=== PATIENT | male | born 1955 | race Caucasian/White ===

== ENCOUNTER 2019-04-12 19:10 | Emergency (ER) | payer MEDICARE ==
[~2019-04-12] VITALS: Ht 188 cm; Wt 92.5 kg
--- NOTE | 2019-04-12 19:15 | ED.ADGEN ---
Adult General Chief Complaint Chief Complaint ".. I feel like when I got exposed to some backing title board dust.. about a year ago... I have treatments.. but I am still really short of breath.. I been staying with a marlen that has 5 cats.. and they make me wheeze too...." HPI HPI Patient is a 63 year old male who presents with above hx and increased wheezing and dyspnea. Pt. has had reactive air way and asthma like complaints the last couple years. Patient does use breathing treatments and was last on steroids for months ago. Follows with fabrizio Garcia in [facility] as primary. Does have hx HTN, but has been controlled on meds. No hx of tobacco use. No specific ill contract s or his immunosuppression. Review of Systems Review of Systems Constitutional: Denies fever or chills [] Eyes: Denies change in visual acuity, redness, or eye pain [] HENT: Denies nasal congestion or sore throat [] Respiratory: Complaints cough and shortness of breath [] Cardiovascular: No additional information not addressed in HPI [] GI: Denies abdominal pain, nausea, vomiting, bloody stools or diarrhea [] : Denies dysuria or hematuria [] Musculoskeletal: Denies back pain or joint pain [] Integument: Denies rash or skin lesions [] Neurologic: Denies headache, focal weakness or sensory changes [] Endocrine: Denies polyuria or polydipsia [] All other systems were reviewed and found to be within normal limits, except as documented in this note. Family History Family History Non-contributory Current Medications Current Medications Current Medications Medications (Trade) Dose Ordered Sig/Jose Start Time Stop Time Status Last Admin Dose Admin Albuterol/ Ipratropium (Duoneb) 3 ml 1X ONCE 04/12/19 19:45 04/12/19 19:46 DC Aspirin (Children'S Aspirin) 324 mg 1X ONCE 04/12/19 19:45 04/12/19 19:46 DC 04/12/19 20:00 324 MG Lactated Ringer's 1,000 ml @ 100 mls/hr Q10H 04/12/19 19:36 04/12/19 21:49 DC 04/12/19 20:00 100 MLS/HR Methylprednisolone Sodium Succinate (SOLU-Medrol 125MG VIAL) 125 mg 1X ONCE 04/12/19 19:45 04/12/19 19:46 DC 04/12/19 20:00 125 MG Allergies Allergies Allergies Coded Allergies Type Severity Reaction Last Updated Verified No Known Drug Allergies 04/12/19 No Physical Exam Physical Exam Constitutional: Well developed, well nourished, Moderate acute distress, non- toxic appearance. [] HENT: Normocephalic, atraumatic, bilateral external ears normal, oropharynx moist, no oral exudates, nose: Turbinates and rhinorrhea Eyes: PERRLA, EOMI, conjunctiva normal, no discharge. [] Neck: Normal range of motion, no tenderness, supple, no stridor. [] Cardiovascular:Heart rate regular rhythm, no murmur [] Lungs & Thorax: Bilateral breath sounds equal at apexes with scattered wheezes on auscultation [] Abdomen: Bowel sounds normal, soft, no tenderness, no masses, no pulsatile masses. [] Skin: Warm, dry, no erythema, no rash. [] Back: No tenderness, no CVA tenderness. [] Extremities: No tenderness, no cyanosis, no clubbing, ROM intact, no edema. [] Neurologic: Alert and oriented X 3, normal motor function, normal sensory function, no focal deficits noted. [] Psychologic: Affect anxious, judgement normal, mood normal. [] Current Patient Data Vital Signs Vital Signs Date Time Temp Pulse Resp B/P (MAP) Pulse Ox O2 Delivery O2 Flow Rate FiO2 04/12/19 20:10 70 18 142/86 (104) 97 Room Air 04/12/19 19:10 98.1 Lab Results Laboratory Tests Test 04/12/19 19:36 04/12/19 19:52 04/12/19 21:00 White Blood Count 11.0 x10^3/uL (4.0-11.0) Red Blood Count 4.97 x10^6/uL (4.30-5.70) Hemoglobin 15.1 g/dL (13.0-17.5) Hematocrit 45.3 % (39.0-53.0) Mean Corpuscular Volume 91 fL (79-100) Mean Corpuscular Hemoglobin 30 pg (25-35) Mean Corpuscular Hemoglobin Concent 33 g/dL (31-37) Red Cell Distribution Width 14.7 % (11.5-14.5) H Platelet Count 337 x10^3/uL (140-400) Neutrophils (%) (Auto) 49 % (31-73) Lymphocytes (%) (Auto) 25 % (24-48) Monocytes (%) (Auto) 7 % (0-9) Eosinophils (%) (Auto) 19 % (0-3) H Basophils (%) (Auto) 1 % (0-3) Neutrophils # (Auto) 5.4 x10^3uL (1.8-7.7) Lymphocytes # (Auto) 2.7 x10^3/uL (1.0-4.8) Monocytes # (Auto) 0.8 x10^3/uL (0.0-1.1) Eosinophils # (Auto) 2.1 x10^3/uL (0.0-0.7) H Basophils # (Auto) 0.1 x10^3/uL (0.0-0.2) Urine Collection Type Unknown Urine Color Yellow Urine Clarity Hazy Urine pH 5.5 Urine Specific [place] 1.025 Urine Protein Neg (NEG-TRACE) Urine Glucose (UA) Neg mg/dL (NEG) Urine Ketones (Stick) Neg mg/dL (NEG) Urine Blood Neg (NEG) Urine Nitrite Neg (NEG) Urine Bilirubin Neg (NEG) Urine Urobilinogen Dipstick 0.2 mg/dL (0.2 mg/dL) Urine Leukocyte Esterase Neg (NEG) Urine RBC 0 /HPF (0-2) Urine WBC 0 /HPF (0-4) Urine Squamous Epithelial Cells Occ /LPF Urine Bacteria 0 /HPF (0-FEW) Prothrombin Time 9.7 SEC (9.4-11.4) Prothrombin Time INR 0.9 (0.9-1.1) PTT 23 SEC (23-33) D-Dimer (Shawna) 0.21 mg/L (0.00-0.50) Sodium Level 143 mmol/L (136-145) Potassium Level 4.2 mmol/L (3.5-5.1) Chloride Level 105 mmol/L (98-107) Carbon Dioxide Level 27 mmol/L (21-32) Anion Gap 11 (6-14) Blood Urea Nitrogen 16 mg/dL (8-26) Creatinine 1.2 mg/dL (0.7-1.3) Estimated GFR (Cockcroft-Gault) 60.8 Glucose Level 104 mg/dL (70-99) H Calcium Level 9.3 mg/dL (8.5-10.1) Magnesium Level 2.1 mg/dL (1.8-2.4) Total Bilirubin 0.4 mg/dL (0.2-1.0) Direct Bilirubin 0.1 mg/dL (0.0-0.2) Aspartate Amino Transferase (AST) 18 U/L (15-37) Alanine Aminotransferase (ALT) 30 U/L (16-63) Alkaline Phosphatase 78 U/L (46-116) Creatine Kinase 132 U/L (39-308) Troponin I Quantitative < 0.017 ng/mL (0-0.055) OM-Nvf-[id number]-Type Natriuretic Peptide 32 pg/mL (0-124) Total Protein 7.5 g/dL (6.4-8.2) Albumin 3.8 g/dL (3.4-5.0) Lipase 172 U/L (73-393) Urine Opiates Screen Neg (NEG) Urine Methadone Screen Neg (NEG) Urine Barbiturates Neg (NEG) Urine Phencyclidine Screen Neg (NEG) Urine Amphetamine/Methamphetamine Neg (NEG) Urine Benzodiazepines Screen Neg (NEG) Urine Cocaine Screen Neg (NEG) Urine Cannabinoids Screen Neg (NEG) Urine Ethyl Alcohol Neg (NEG) EKG EKG My interpretation EKG shows a sinus rhythm at 70 bpm. No findings acute STEMI of contralateral changes.[] Radiology/Procedures Radiology/Procedures I interpretation of chest x-ray shows no acute cardiopulmonary findings.[] Course & Med Decision Making Course & Med Decision Making Pertinent Labs and Imaging studies reviewed. (See chart for details) Patient to avoid exposure to cats and allergens that trigger his asthma. Patient follow-up primary care. Patient take prednisone 50 mg day 5 days. Patient uses MDI 2 puffs 4 times a day. Patient use Flovent 2 puffs every night. Patient return if any concerns. Patient advised Benadryl 25 mg up 4 times a day may be helpful for allergies and nasal drainage. [] Final Impression Final Impression 1. Asthma Exacerbation[] 2. Elevated eosinophil count Dragon Disclaimer Dragon Disclaimer This electronic medical record was generated, in whole or in part, using a voice recognition dictation system. Discharge Summary Visit Information Final Diagnosis Problems Medical Problems: (1) Asthma exacerbation Status: Acute Brief Hospital Course Allergies Allergies Coded Allergies Type Severity Reaction Last Updated Verified No Known Drug Allergies 04/12/19 No Vital Signs Vital Signs Date Time Temp Pulse Resp B/P (MAP) Pulse Ox O2 Delivery O2 Flow Rate FiO2 04/12/19 20:10 70 18 142/86 (104) 97 Room Air 04/12/19 19:10 98.1 Lab Results Laboratory Tests Test 04/12/19 19:36 04/12/19 19:52 04/12/19 21:00 White Blood Count 11.0 x10^3/uL (4.0-11.0) Red Blood Count 4.97 x10^6/uL (4.30-5.70) Hemoglobin 15.1 g/dL (13.0-17.5) Hematocrit 45.3 % (39.0-53.0) Mean Corpuscular Volume 91 fL (79-100) Mean Corpuscular Hemoglobin 30 pg (25-35) Mean Corpuscular Hemoglobin Concent 33 g/dL (31-37) Red Cell Distribution Width 14.7 % (11.5-14.5) Platelet Count 337 x10^3/uL (140-400) Neutrophils (%) (Auto) 49 % (31-73) Lymphocytes (%) (Auto) 25 % (24-48) Monocytes (%) (Auto) 7 % (0-9) Eosinophils (%) (Auto) 19 % (0-3) Basophils (%) (Auto) 1 % (0-3) Neutrophils # (Auto) 5.4 x10^3uL (1.8-7.7) Lymphocytes # (Auto) 2.7 x10^3/uL (1.0-4.8) Monocytes # (Auto) 0.8 x10^3/uL (0.0-1.1) Eosinophils # (Auto) 2.1 x10^3/uL (0.0-0.7) Basophils # (Auto) 0.1 x10^3/uL (0.0-0.2) Urine Collection Type Unknown Urine Color Yellow Urine Clarity Hazy Urine pH 5.5 Urine Specific [place] 1.025 Urine Protein Neg (NEG-TRACE) Urine Glucose (UA) Neg mg/dL (NEG) Urine Ketones (Stick) Neg mg/dL (NEG) Urine Blood Neg (NEG) Urine Nitrite Neg (NEG) Urine Bilirubin Neg (NEG) Urine Urobilinogen Dipstick 0.2 mg/dL (0.2 mg/dL) Urine Leukocyte Esterase Neg (NEG) Urine RBC 0 /HPF (0-2) Urine WBC 0 /HPF (0-4) Urine Squamous Epithelial Cells Occ /LPF Urine Bacteria 0 /HPF (0-FEW) Prothrombin Time 9.7 SEC (9.4-11.4) Prothromb Time International Ratio 0.9 (0.9-1.1) Activated Partial Thromboplast Time 23 SEC (23-33) D-Dimer (Shawna) 0.21 mg/L (0.00-0.50) Sodium Level 143 mmol/L (136-145) Potassium Level 4.2 mmol/L (3.5-5.1) Chloride Level 105 mmol/L (98-107) Carbon Dioxide Level 27 mmol/L (21-32) Anion Gap 11 (6-14) Blood Urea Nitrogen 16 mg/dL (8-26) Creatinine 1.2 mg/dL (0.7-1.3) Estimated GFR (Cockcroft-Gault) 60.8 Glucose Level 104 mg/dL (70-99) Calcium Level 9.3 mg/dL (8.5-10.1) Magnesium Level 2.1 mg/dL (1.8-2.4) Total Bilirubin 0.4 mg/dL (0.2-1.0) Direct Bilirubin 0.1 mg/dL (0.0-0.2) Aspartate Amino Transf (AST/SGOT) 18 U/L (15-37) Alanine Aminotransferase (ALT/SGPT) 30 U/L (16-63) Alkaline Phosphatase 78 U/L (46-116) Creatine Kinase 132 U/L (39-308) Troponin I Quantitative < 0.017 ng/mL (0-0.055) ZA-Whs-C-Type Natriuretic Peptide 32 pg/mL (0-124) Total Protein 7.5 g/dL (6.4-8.2) Albumin 3.8 g/dL (3.4-5.0) Lipase 172 U/L (73-393) Urine Opiates Screen Neg (NEG) Urine Methadone Screen Neg (NEG) Urine Barbiturates Neg (NEG) Urine Phencyclidine Screen Neg (NEG) Urine Amphetamine/Methamphetamine Neg (NEG) Urine Benzodiazepines Screen Neg (NEG) Urine Cocaine Screen Neg (NEG) Urine Cannabinoids Screen Neg (NEG) Urine Ethyl Alcohol Neg (NEG) Brief Hospital Course Mr. James is a 63 old male who presented with asthma exacerbation. Discharge Information Condition at Discharge: Improved, Stable Disposition/Orders: D/C to Home Dischare Medications Current Medications Albuterol/ Ipratropium (Duoneb) 3 ml 1X ONCE NEB Last administered on 04/12/19at 19:29; Admin Dose 3 ML; Start 04/12/19 at 19:30; Stop 04/12/19 at 19:31; Status DC Aspirin (Children'S Aspirin) 324 mg 1X ONCE PO Last administered on 04/12/19at 20:00; Admin Dose 324 MG; Start 04/12/19 at 19:45; Stop 04/12/19 at 19:46; Status DC Lactated Ringer's 1,000 ml @ 100 mls/hr Q10H IV Last administered on 04/12/19at 20:00; Admin Dose 100 MLS/HR; Start 04/12/19 at 19:36; Stop 04/12/19 at 21:49; Status DC Methylprednisolone Sodium Succinate (SOLU-Medrol 125MG VIAL) 125 mg 1X ONCE IV Last administered on 04/12/19at 20:00; Admin Dose 125 MG; Start 04/12/19 at 19:45; Stop 04/12/19 at 19:46; Status DC Albuterol/ Ipratropium (Duoneb) 3 ml 1X ONCE NEB ; Start 04/12/19 at 19:45; Stop 04/12/19 at 19:46; Status DC Active Scripts Active Flovent 110MCG Hfa (Fluticasone Propionate) 12 Gm Aer.w.adap 2 Puff IH BID Ventolin Hfa Inhaler (Albuterol Sulfate) 18 Gm Hfa.aer.ad 2 Puff IH PRN Q4HRS PRN 90 Days Prednisone 50 Mg Tablet 50 Mg PO DAILY 5 Days Dragon Disclaimer This chart was dictated in whole or in part using Voice Recognition software in a busy, high-work load, and often noisy Emergency Department environment. It may contain unintended and wholly unrecognized errors or omissions. ZACKARY DUNN MD Apr 12, 2019 19:15
[2019-04-12] MEDS ORDERED: IPRATRPIUM/ALBUTEROL 0.5/2.5MG 3 ML NEBU. NEB ONE ×2 (19:30→19:45)
[2019-04-12] MEDS ORDERED: IV RINGERS SOLUTION,LACTATED 1,000 ML IV SCH (19:36)
[2019-04-12] MEDS ORDERED: ASPIRIN 81 MG TAB.CHEW PO ONE (19:45)
[2019-04-12] MEDS ORDERED: methylPREDNISolone SOD SUCC PF 125 MG/2 ML VIAL. IV ONE (19:45)
[2019-04-12 20:06] LABS: BASO # 0.1 x10^3/uL (0.0-0.2); BASO % 1 % (0-3); EOS # 2.1 x10^3/uL (0.0-0.7); EOS % 19 % (0-3); HEMATOCRIT 45.3 % (39.0-53.0); HEMOGLOBIN 15.1 g/dL (13.0-17.5); LYMPH # 2.7 x10^3/uL (1.0-4.8); LYMPH % 25 % (24-48); MEAN CORPUSCULAR HEMOGLOBIN 30 pg (25-35); MEAN CORPUSCULAR HGB CONC 33 g/dL (31-37); MEAN CORPUSCULAR VOLUME 91 fL (79-100); MONO # 0.8 x10^3/uL (0.0-1.1); MONO % 7 % (0-9); NEUT # 5.4 x10^3uL (1.8-7.7); NEUT % 49 % (31-73); PLATELET COUNT 337 x10^3/uL (140-400); RED BLOOD COUNT 4.97 x10^6/uL (4.30-5.70); RED CELL DISTRIBUTION WIDTH 14.7 % (11.5-14.5)
[2019-04-12 20:10] VITALS: BP 142/86
[2019-04-12] MEDS ORDERED: FLUT12AE IH (20:24)
[2019-04-12] MEDS ORDERED: PRED50TA PO (20:24)
[2019-04-12] MEDS ORDERED: ALBU2.5V8 IH (20:24)
[2019-04-12 20:29] LABS: ALBUMIN 3.8 g/dL (3.4-5.0); CALCIUM 9.3 mg/dL (8.5-10.1); CREATININE 1.2 mg/dL (0.7-1.3); DIRECT BILIRUBIN 0.1 mg/dL (0.0-0.2); GFR 60.8; MAGNESIUM 2.1 mg/dL (1.8-2.4); POTASSIUM 4.2 mmol/L (3.5-5.1); TOTAL BILIRUBIN 0.4 mg/dL (0.2-1.0); TOTAL PROTEIN 7.5 g/dL (6.4-8.2)
[2019-04-12 21:32] LABS: BACTERIA,URINE 0 /HPF (0-FEW); BILIRUBIN,URINE NEG (NEG); CLARITY,URINE HAZY; COLOR,URINE YELLOW; GLUCOSE,URINE NEG (NEG); NITRITE,URINE NEG (NEG); RBC,URINE 0 /HPF (0-2); SQUAMOUS EPITHELIAL CELL,UR OCC /LPF; UROBILINOGEN,URINE 0.2 mg/dL (0.2 mg/dL); WBC,URINE 0 /HPF (0-4)
[2019-04-12 21:39] LABS: BARBITURATES NEG (NEG); BENZODIAZEPINES NEG (NEG); CANNABINOIDS NEG (NEG); COCAINE NEG (NEG); METHADONE NEG (NEG); OPIATES NEG (NEG); PHENCYCLIDINE NEG (NEG)
[2019-04-12 21:40] LABS: AMPHETAMINE/METHAMPHETAMINE NEG (NEG)
--- NOTE | 2019-04-12 22:31 | RAD ---
PA and lateral chest. HISTORY: Cough, congestion PA and lateral views were taken of the chest. Heart is normal in size. There is no effusion. There is minimal linear scarring or atelectasis in the left lung base. No other infiltrates are noted. IMPRESSION: 1. Left lower lobe linear scar or atelectasis without other infiltrates. Electronically signed by: Asad Del Rosario MD (04/12/2019 10:28 PM) [facility]
== END 2019-04-12 21:05 | disposition home or self-care (01) ==
LOC: ER 19:10
DX: J45.901 Unspecified asthma with (acute) exacerbation (principal); D72.1 Eosinophilia
CPT/HCPCS: 36415; 71046; 80048; 80076; 80307; 81001; 82550; 83690; 83735; 83880; 84443; 84484; 85025; 85379; 85610; 85730; 93005; 94640; 96374; 99285; J2930; J7120; J7620

== ENCOUNTER 2019-10-02 01:17 | Emergency (ER) | payer MEDICARE ==
[~2019-10-02] VITALS: Ht 188 cm; Wt 96.6 kg
[~2019-10-02 01:17] MED LIST: ALBU2.5V8 IH; FLUT12AE IH; PRED50TA PO
[2019-10-02] MEDS ORDERED: ALBUTEROL SULFATE 2.5 MG/3 ML NEBU. ONE (01:31)
[2019-10-02] MEDS ORDERED: BUDE10.2 IH (01:31)
[2019-10-02] MEDS ORDERED: ALBU2.5V14 NEB (01:31)
[2019-10-02] MEDS ORDERED: blood pressure med (01:32)
[2019-10-02] MEDS ORDERED: PRED-220 PO (01:37)
--- NOTE | 2019-10-02 01:37 | PHYS DOC ---
Past History Past Medical History: Asthma, Hypertension Past Surgical History: No Surgical History Alcohol Use: None Drug Use: None Adult General Chief Complaint Chief Complaint: DYSPNEA/RESPIRATOY DISTRESS HPI HPI 63-year-old male presents with shortness of breath. Patient has a history of asthma. He uses albuterol as needed and is sometimes posted on Symbicort. He has not been taking his Symbicort for the last 2 weeks. He does not have a specific reason why he hasn't taken it. He tells me that he has been using his albuterol MDI or nebulizer every 3 hours today and still feels short of breath. He is pretty sure he is wheezing. He denies any history of COPD. He was never a smoker. He denies chest pain, diaphoresis, fever or chills. Review of Systems Review of Systems Constitutional: Denies fever or chills [] Eyes: Denies change in visual acuity, redness, or eye pain [] HENT: Denies nasal congestion or sore throat [] Respiratory: Denies cough or shortness of breath [] Cardiovascular: No additional information not addressed in HPI [] GI: Denies abdominal pain, nausea, vomiting, bloody stools or diarrhea [] : Denies dysuria or hematuria [] Musculoskeletal: Denies back pain or joint pain [] Integument: Denies rash or skin lesions [] Neurologic: Denies headache, focal weakness or sensory changes [] Endocrine: Denies polyuria or polydipsia [] All other systems were reviewed and found to be within normal limits, except as documented in this note. Current Medications Current Medications Current Medications Medications (Trade) Dose Ordered Sig/Jose Start Time Stop Time Status Last Admin Dose Admin Albuterol Sulfate (Ventolin) 2.5 mg STK-MED ONCE 10/02/19 01:31 10/02/19 01:31 DC Allergies Allergies Allergies Coded Allergies Type Severity Reaction Last Updated Verified No Known Drug Allergies 10/02/19 No Physical Exam Physical Exam Constitutional: Well developed, well nourished, no acute distress, non-toxic appearance. [] HENT: Normocephalic, atraumatic, bilateral external ears normal, oropharynx moist, no oral exudates, nose normal. [] Eyes: PERRLA, EOMI, conjunctiva normal, no discharge. [] Neck: Normal range of motion, no tenderness, supple, no stridor. [] Cardiovascular:Heart rate regular rhythm, no murmur [] Lungs & Thorax: Bilateral breath sounds clear to auscultation [] Abdomen: Bowel sounds normal, soft, no tenderness, no masses, no pulsatile masses. [] Skin: Warm, dry, no erythema, no rash. [] Back: No tenderness, no CVA tenderness. [] Extremities: No tenderness, no cyanosis, no clubbing, ROM intact, no edema. [] Neurologic: Alert and oriented X 3, normal motor function, normal sensory function, no focal deficits noted. [] Psychologic: Affect normal, judgement normal, mood normal. [] EKG EKG [] Radiology/Procedures Radiology/Procedures [] Course & Med Decision Making Course & Med Decision Making Pertinent Labs and Imaging studies reviewed. (See chart for details) The patient has oxygen saturation of 94-95 on room air. He does have diffuse wheezing, but it is not severe. I given the patient 125 of Solu-Medrol IM, albuterol treatment, and a DuoNeb treatment. He still has wheezing. He has all the right medications and equipment at home to continue to treat his asthma. I believe he just needs the steroids to kick in to feel better. Give the patient the option of being admitted versus going home and he would like to go home. If his condition worsens or he will return to the emergency room. He is stable for discharge at this time. [] Dragon Disclaimer Dragon Disclaimer This electronic medical record was generated, in whole or in part, using a voice recognition dictation system. Departure Departure: Impression: Primary Impression: Asthma exacerbation Disposition: HOME, SELF-CARE Condition: STABLE Referrals: PCP,NO (PCP) Patient Instructions: Asthma, Adult, [id number] Scripts Prednisone (PREDNISONE) 10 Mg Tablet 50 MG PO DAILY for asthma for 3 Days, #15 TAB Prov: CURTIS PETERS DO 10/02/19 Problem Qualifiers Primary Impression: Asthma exacerbation Asthma severity: mild Asthma persistence: intermittent Qualified Codes: J45.21 - Mild intermittent asthma with (acute) exacerbation CURTIS PETERS DO Oct 02, 2019 01:37
[2019-10-02] MEDS ORDERED: ALBUTEROL SULFATE 2.5 MG/3 ML NEBU. NEB ONE (01:45)
[2019-10-02] MEDS ORDERED: methylPREDNISolone SOD SUCC PF 125 MG/2 ML VIAL. IM ONE (01:45)
[2019-10-02] MEDS ORDERED: methylPREDNISolone SOD SUCC PF 125 MG/2 ML VIAL. IV ONE (01:45)
[2019-10-02] MEDS ORDERED: IPRATRPIUM/ALBUTEROL 0.5/2.5MG 3 ML NEBU. ONE (01:52)
[2019-10-02] MEDS ORDERED: IPRATRPIUM/ALBUTEROL 0.5/2.5MG 3 ML NEBU. NEB ONE (02:00)
[2019-10-02 02:20] VITALS: BP 128/84
--- NOTE | 2019-10-02 05:36 | RAD ---
Study: CHEST PA LATERAL Indication: Shortness of breath and wheezing. Comparison: 04/12/2019 Findings: Unchanged configuration of the cardiomediastinal silhouette and lu. No pneumothorax or pleural effusion. On the lateral view, haziness along the upper aspect of the retrocardiac clear space is no different from the prior. Impression: Unchanged appearance of the chest. Ill-defined haziness within the upper aspect of the retrocardiac clear space is unchanged from the comparison and could represent atelectasis and/or scarring given stability over time. Electronically signed by: CLEMENTE IGNACIO MD (10/02/2019 5:33 AM) [id number]
== END 2019-10-02 02:28 | disposition home or self-care (01) ==
LOC: ER 01:17
DX: J45.21 Mild intermittent asthma with (acute) exacerbation (principal); I10 Essential (primary) hypertension
CPT/HCPCS: 71046; 94640; 96372; 99284; J2930; J7613; J7620